=== PATIENT | female | born 1945 | race Caucasian/White ===

== ENCOUNTER 2018-04-14 09:20 | Day surgery (SDC) | payer MEDICARE, SELFPAY ==
[2018-04-14] VITALS (8 sets, daily range): BP systolic 82–124; BP diastolic 29–58; PULSE 50–66; RESP 12–18; TEMP 36.1–36.7; O2SAT 94–100; BMI 21.4
--- NOTE | 2018-04-14 | PATH_ITS ---
[facility] Accession Number: [id number] . 01 Material submitted: . PART A: CECAL BIOPSY PART B: TRANSVERSE COLON BIOPSY PART C: LEFT COLON BIOPSY . 02 Diagnosis: A, B, C. Biopsy, Cecum, Transverse Colon, and Left Colon: Multiple fragments of normal appearing colon mucosa present in all three specimens. Negative for significant architectural distortion. Negative for significant inflammation, dysplasia and malignancy. [facility]/04/15/2018 . 02 Electronically signed: . Familia Cedillo MD, Pathologist NPI- [id number] . 01 Gross description: . Received three formalin-filled containers, each labeled with the patient's name: . A. In a container labeled cecal, are five 0.1-0.3 cm portions of tissue, entirely submitted in cassette A. B. In a container labeled transverse col, are multiple less than 0.1 cm to 0.3 cm portions of tissue, entirely submitted in cassette B. C. In a container labeled left col, are multiple 0.1-0.3 cm portions of tissue, which are filtered, wrapped, and entirely submitted in cassette C. ([id number]) /FRR . 02 Pathologist provided ICD-10: R19.7 . 02 CPT . 190456, 349711, [id number] Performed at: 01 [facility] [address] [facility], [place], [place] [id number] MD Jasper Prince MD Phone: [phone] Performed at: 02 [facility] [address] [place], [place] [id number] MD Angela Lopez MD Phone: [phone]
[2018-04-14] MEDS: SODIUM CHLORIDE 0.9% 1,000 ML 42 ML IV ×2 (09:58→11:13)
--- NOTE | 2018-04-14 10:36 | PM.HP.1 ---
History of Present Illness Date Patient Seen: 04/14/18 Time Patient Seen: 10:36 Chief complaint: Colonscopy Narrative: History of ulcerative colitis Patient History Medical History Endometriosis (Acute) Hypertension (Acute) Ulcerative colitis (Acute) Surgical History H/O hysterectomy for benign disease (Acute) History of colon resection (Acute) Family & Social History Social History: household members spouse Meds Home Medications Medication Instructions Recorded Confirmed Type estradiol 04/14/18 History meloxicam 7.5 mg PO DAILY 04/14/18 04/14/18 History metoprolol tartrate 50 mg PO BID 04/14/18 04/14/18 History nortriptyline DAILY 04/14/18 History Allergies Allergy/AdvReac Type Severity Reaction Status Date / Time No Known Drug Allergies Allergy Verified 04/14/18 09:49 Exam Vital Signs (past 8 hours): - 04/14/18 09:31 Temperature 97 F L Pulse Rate 50 L Respiratory Rate 15 Blood Pressure 124/58 L Pulse Oximetry 100 Oxygen Delivery Method Room Air Narrative Exam Narrative: Oropharynx free of lesions Chest clear to auscultation percussion Cardiac exam reveals no S3 or murmur Assessment & Plan Plan: Assessment/Plan Narrative: Longstanding history of ulcerative colitis with last colonoscopy February 2013. Completely normal mucosa at that time. Need for follow-up colonoscopy. Risks, benefits, alternatives have been explained.
--- NOTE | 2018-04-14 10:39 | PM.OP.ENDO ---
Operative Date/Time/Diagnoses Date of procedure: 04/14/18 Time of procedure: 10:39 Post-op diagnosis: same Procedure & Clinicians Study performed: Colonoscopy with biopsy Same procedure as scheduled: Yes Indications: Ulcerative colitis Surgeon: Annelise Yan Procedure Notes Procedure in detail: After informed consent was obtained the patient was placed in the left lateral decubitus position. Video colonoscope was introduced in the rectum slowly advanced to the cecum. On slow withdrawal mucosa was covered examined. The scope was removed. The patient tolerated the procedure well. Blood loss none Complications is none Sedation Total sedation time 22 min Versed 2 mg fentanyl 100 mcg IV titration Findings 1. Normal colonoscopy to cecum. Hold colonic anastomosis not clearly identified. Two biopsies were taken every 10 cm in the right colon, transverse colon, and left colon. Few scattered diverticular were seen in the sigmoid colon. We will be in touch Olga regarding biopsies. She should have follow-up colonoscopy in 2-3 years.
[2018-04-14] MEDS: MIDAZOLAM 5 MG/5 ML VIAL IV (10:49)
[2018-04-14] MEDS: fentaNYL 250 MCG/5 ML INJ IV (10:50)
== END 2018-04-14 11:34 | disposition home or self-care (01) ==
PROVIDERS: Visit Provider Internal Medicine Gastroenterology
PROC: 0DJD8ZZ Inspection of Lower Intestinal Tract, Via Natural or Artificial Opening Endoscopic (ICD-10-PCS; CPT 45378; principal; 2018-04-14 10:30)
DX: Z87.19 Personal history of other diseases of the digestive system (principal); I10 Essential (primary) hypertension; K57.30 Diverticulosis of large intestine without perforation or abscess without bleeding
CPT/HCPCS: 45380; 88305; J2250; J3010

== ENCOUNTER → 2024-05-12 10:08 | Outpatient (CLI) | payer MEDICARE, SELFPAY ==
--- NOTE | 2024-05-12 10:11 | DI.NM.S_ITS ---
PROCEDURE: NM MILO PERF SPECT R&S PHARM Rest and pharmacological stress myocardial perfusion SPECT with gated imaging and ejection fraction RADIOPHARMACEUTICAL: 10.4 mCi Tc-99m tetrafosmin IV at rest and 25.0 mCi Tc-99m tetrafosmin IV at peak effect of pharmacological stress. A [id number]-[id number] was performed. INDICATIONS: CHEST PAIN TECHNIQUE: Radiopharmaceutical was injected at peak stress test, and also at rest. SPECT images were obtained. SPECT myocardial perfusion images were displayed in short axis, horizontal long axis, and vertical long axis views. Gated images were reviewed using [email or web address] software. COMPARISON: None. CARDIAC STRESS: A pharmacologic stress test was performed under the supervision of an attending staff, using an infusion of regadenoson 0.4 mg IV. Hemodynamic data: There is normal blood pressure and heart rate response to pharmacologic stress. Symptoms: The patient denied anginal chest pain. EKG: No diagnostic changes of ischemia; no ectopy. FINDINGS: Raw data: There is good myocardial uptake of radiotracer. No significant motion artifacts. Elrn-bk-dscpg ratio is 0.39 (normal is less than 0.38 for tetrafosmin tracer). Left ventricle function: Gated images demonstrate normal left ventricular wall thickening. No segmental wall motion abnormalities. No transient ischemic dilation; TID is 0.91 (normal less than 1.3). Left ventricle resting end diastolic volume is 61 mL. Left ventricle stress ejection fraction is >75%; normal range is above 45%. Myocardial perfusion: There is normal distribution of activity in the right and left ventricular myocardium. No fixed or reversible perfusion defects. IMPRESSION: Low risk study. No evidence of pharmacologic induced ischemia or scar. Small LV size with hyperdynamic function. Dictated by: Charity Hernandez D.O. on 05/12/2024 at 16:28 Approved by: Charity Hernandez D.O. on 05/12/2024 at 16:30
== END ==
LOC: NUCM 10:09
PROVIDERS: PCP Physician Assistant Medical; Referring Provider Physician Assistant Medical; Visit Provider Physician Assistant Medical
DX: R07.9 Chest pain, unspecified (principal)
CPT/HCPCS: 78452; 93017; A9502; J2785